=== PATIENT | male | born 1985 | race Caucasian/White ===

== ENCOUNTER 2022-01-26 10:45 | Emergency (ER) | payer MEDICAID, SELFPAY ==
[2022-01-26 11:02] VITALS: BP 104/65; PULSE 94; RESP 16; TEMP 36.9; O2SAT 98; BMI 23.5
--- NOTE | 2022-01-26 11:45 | XR_ITS ---
WS: [id number] Exam: XR knee LT 3V* [id number] Date/Time of Exam: 01/26/2022 11:47 AM Reason For Exam: pain and popping Comparison 03/21/2009. No fracture or dislocation. The joint compartments are preserved. Small effusion in the suprapatellar bursa. At least 2 small osseous densities are noted along the inferior posterior patella on the late ral view and may represent loose joint bodies. Recommendations: MRI of the knee might be helpful for further workup if thought to be clinically rajat anted. XR/XR knee LT 3V* [id number] IMPRESSION: 1. No fracture or dislocation. 2. Small joint effusion. 3. 2 small osseous densities visualized along the posterior inferior patella an d may represent loose joint bodies.
--- NOTE | 2022-01-26 12:56 | ED_ITS ---
HPI - Extremity Problem General: Chief complaint: Extremity Injury, Lower Stated complaint: Left knee pain Time Seen by Provider: 01/26/22 10:48 History of Present Illness: Patient is in today for complaints of left knee pain. He reports that he was walking yesterday he hit his head on the storage unit and was still taking a step when he stepped down his knee buckled and he went down to the ground on his knee. Ports that he has been unable to bear weight since that time. He reports extreme pain and swelling. l He reports that he is also slightly concerned about his left wrist. He reports it has been hurting for a couple of months seems to be slowly getting better that he would get it checked out while he is here. He reports it is on the thumb side of his wrist and has had a dislocation in the past he thinks that is the cause of his pain Associated symptoms: Deny fever(s) Review of Systems Const: Denies: fever(s), chills or body aches Musc: Reports: joint pain, joint swelling and limited range of motion Physical Exam Const: COMMON NORMALS: no acute distress, patient oriented x3 and alert Extremity: NARRATIVE EXTREMITY EXAM: left wrist without any obvious bony or soft tissue deformity appreciated. Patient is moving the wrist normally free range of motion. CSM within normal limits to distal fingers. OTHER: Left knee with notable swelling appreciated. No obvious bony deformity appreciated no bruising appreciated. The patient is unable to tolerate examination of the knee. Unable to bear weight. Neuro: COMMON NORMALS: patient oriented x3 SENSORIUM/ORIENTATION: Yes alert Course Vital Signs: Vital signs: Vital Signs Temperature 98.4 F 01/26/22 11:02 Pulse Rate 94 01/26/22 11:02 Respiratory Rate 16 01/26/22 11:02 Blood Pressure 104/65 01/26/22 11:02 Pulse Oximetry 98 01/26/22 11:02 Oxygen Delivery Me thod 01/26/22 11:02 MDM - Extremity (Nontraumatic) Medical Decision Making Patient is in today for chronic left wrist pain and acute left knee pain. He reports that he thought he would just get his wrist checked out while he was here. I advised him that since the wrist is improving he should follow with his primary care provider. Knee pain?patient's left knee is swollen and tender to palpation he is unable to bear weight on the knee. X-rays are negative for acute fracture or dislocation, positive for pain, positive for 2 small osseous densities visualized along the posterior inferior patella and may represent loose joint bodies. Offered patient of long-leg knee immobilizer and crutches. He ended up refusing the knee immobilizer. Luis wrap the knee send patient home to remain off any utilizing crutches. Refer patient to orthopedics for further evaluation and determination of plan of care. Follow-up in the ER as needed for new or worsening symptoms. Patient verbalized understanding and agreement with plan of care. Lab Data Radiology Impressions Knee X-Ray 01/26/22 11:45 IMPRESSION: 1. No fracture or dislocation. 2. Small joint effusion. 3. 2 small osseous densities visualized along the posterior inferior patella and may represent loose joint bodies. Discharge Plan Discharge Patient Disposition: Home Clinical Impression: Internal derangement of knee Qualifiers: Laterality: left Qualified Code(s): M23.92 - Unspecified internal derangement of left knee Condition: Stable Prescriptions: New ibuprofen 800 mg tablet 800 mg PO TID PRN (Reason: pain) Qty: 30 0RF (DME) Knee Stabilizer Misc See Rx Instructions .ROUTE Qty: 1 0RF Rx Instructions: As directed Discharge Orders: Discharge ED (Routine); Ordered 01/26/22 Ordered By: Brandee Ramey Other Ambulatory Orders: DME: Cane/ Crutches (UNK) Location: None Selected Ordered By: Brandee Ramey Referrals: Ronaldo Leahy DO [Primary Care Provider] - Discharge Diet: Usual diet Discharge Activity: Use walker/crutches as instructed Patient Instructions: Swollen Knee Joint (ED) Activity Restrictions/Additional Instructions: Use crutches and leg immobilizer. No weightbearing on the left leg. Rest, ice, elevate the extremity. Use ibuprofen as directed as needed for pain. Follow-up with orthopedics. They should call you to schedule an appointment. Follow-up with your primary care provider. Return to ER for any new or worsening symptoms. Coding Level of Care Code ED Director [employer] [facility]
[2022-01-26 13:23] VITALS: BP 104/65; PULSE 94; RESP 16; TEMP 36.9; O2SAT 98
--- NOTE | 2022-01-26 13:55 | DCPLANNER ---
Addendum entered by Di Rivers 02/18/22 14:04: Patient had a follow up appointment scheduled with ortho - patient did attend appointment. Addendum entered by Di Rivers 01/27/22 12:19: Patient has a follow up appointment scheduled for Tuesday, February 01, [address]22 at 7:[address] Jack at ortho. Clinic will call patient with appointment information. Original Note: business records manager had message to schedule a follow up appointment for patient with ortho. business records manager sent patients information to the front office staff at ortho. Patients information will be printed and reviewed. Clinic will call patient with appointment information.
== END 2022-01-26 13:26 | disposition home or self-care (01) ==
PROVIDERS: Emergency Provider Nurse Practitioner Family; PCP Family Medicine
DX: M23.92 Unspecified internal derangement of left knee (principal)
CPT/HCPCS: 73562; 99283

== ENCOUNTER → 2022-02-01 07:38 | Outpatient (BNVA) | payer MEDICAID, SELFPAY | PROVIDERS: PCP Family Medicine; Referring Provider Nurse Practitioner Family; Visit Provider Student in an Organized Health Care Education/Training Program | DX: S89.92XA Unspecified injury of left lower leg, initial encounter (principal); X58.XXXA Exposure to other specified factors, initial encounter; M23.42 Loose body in knee, left knee | CPT/HCPCS: 73560; 73565 ==

== ENCOUNTER 2022-02-01 09:45 | Outpatient (CLI) | payer MEDICAID, SELFPAY | END 2022-02-01 09:46 | disposition home or self-care (01) | LOC: SPT 09:46 | PROVIDERS: PCP Family Medicine; Visit Provider Student in an Organized Health Care Education/Training Program | DX: Z46.89 Encounter for fitting and adjustment of other specified devices (principal); M25.562 Pain in left knee | CPT/HCPCS: 97760; L1812 ==

== ENCOUNTER 2022-04-16 19:03 | Emergency (ER) | payer MEDICAID, SELFPAY ==
[2022-04-16 19:10] VITALS: BP 127/82; PULSE 112; RESP 20; TEMP 36.7; O2SAT 99
--- NOTE | 2022-04-16 20:52 | W.ED.ALLEREA ---
HPI - Allergic Reaction General: Chief complaint: Allergic Reaction Stated complaint: allergic rxn Time Seen by Provider: 04/16/22 20:45 Source: patient Mode of arrival: ambulatory Limitations: no limitations History of Present Illness: HPI narrative: 36-year-old male states he was eating tonight and states that it felt some swelling in his throat along with some throat pain. He denies any rash denies any difficulty breathing he is handling secretions well denies any worsening proving factors denies any fever. Associated symptoms: Deny abdominal pain, nausea or vomiting Review of Systems Const: Denies: fever(s), chills, body aches or change in appetite Eyes: Denies: blurry vision or eye discomfort ENMT: Reports: throat pain; Denies: dental pain Card: Denies: chest pain Resp: Denies: dyspnea GI: Denies: abdominal pain, nausea, vomiting or diarrhea : Denies: dysuria Musc: Denies: neck pain or back pain Skin/Breast: Denies: rash Neuro: Denies: headache(s) Psych: Denies: depression Dimitry/Lymph: Denies: easy bruising All/Imm: Denies: urticaria PFSH ED PFSH: Medical History Loose body of left knee Social History (Updated 04/16/22 @ 20:59 by Joellen Mcginnis MD) Substance/Drug Use: unknown Physical Exam Const: COMMON NORMALS: no acute distress, average body habitus and patient oriented x3 HENMT: COMMON NORMALS: normocephalic and atraumatic HEAD & SCALP: normocephalic and atraumatic OTHER: Oropharynx clear no erythema no swelling no uvula deviation no lymphadenopathy Eye: COMMON NORMALS: conjunctivae normal CONJUNCTIVA: Yes conjunctivae normal Neck/C-Spine: GENERAL: Yes normal visual inspection Chest: COMMONS NORMALS: normal inspection of the chest Resp: COMMON NORMALS: normal respiratory effort Cardio: COMMON NORMALS: regular rate RATE: regular rate GI: INSPECTION: Yes normal to inspection Extremity: COMMON NORMALS: normal to inspection Neuro: COMMON NORMALS: patient oriented x3 Psych: COMMON NORMALS: mental status grossly normal Skin: COMMON NORMALS: no rashes or lesions noted GENERAL SKIN EXAM: no rashes or lesions noted Course Vital Signs: Vital signs: Vital Signs Temperature 98.0 F 04/16/22 19:10 Pulse Rate 112 H 04/16/22 19:10 Respiratory Rate 20 H 04/16/22 19:10 Blood Pressure 127/82 04/16/22 19:10 Pulse Oximetry 99 04/16/22 19:10 Oxygen Delivery Me thod 04/16/22 19:10 MDM - Allergic Reaction Medical Decision Making Patient presents here with some throat pain his exam here is benign he has no swelling no signs of strep no signs of abscess patient given Decadron Benadryl stable for discharge. Discharge Plan Discharge Patient Disposition: Home Clinical Impression: Throat pain Condition: Stable Prescriptions: No Action (DME) HINGED KNEE BRACE See Rx Instructions .Route .MEDSUPPLY Qty: 1 0RF Rx Instructions: As directed ibuprofen 800 mg tablet 800 mg PO TID PRN (Reason: pain) Qty: 30 0RF (DME) Knee Stabilizer Misc See Rx Instructions .Route Qty: 1 0RF Rx Instructions: As directed Discharge Orders: Discharge ED (Routine); Ordered 04/16/22 Ordered By: Joellen Mcginnis Referrals: Ronaldo Leahy, [Primary Care Provider] - Discharge Diet: Advance as tolerated Discharge Activity: Resume usual activity Patient Instructions: Strep Throat (ED) Coding Level of Care Code ED [employer] [facility]
[2022-04-16] MEDS: dexamethasone 4 mg Tablet 10 MG PO (21:10)
[2022-04-16] MEDS: diphenhydrAMINE 50 mg Capsule PO (21:10)
[2022-04-16 21:17] VITALS: BP 122/79; PULSE 103; TEMP 36.7; O2SAT 96
[2022-04-16 21:30] VITALS: BP 122/79; PULSE 103; RESP 16; TEMP 36.7; O2SAT 96
== END 2022-04-16 21:15 | disposition home or self-care (01) ==
PROVIDERS: Emergency Provider Emergency Medicine; PCP Family Medicine
DX: R07.0 Pain in throat (principal)
CPT/HCPCS: 99283; J8540; Q0163